=== PATIENT | female | born 1995 | race Caucasian/White ===

== ENCOUNTER → 2017-01-15 | Outpatient (CLI) | payer BC, SELFPAY ==
--- NOTE | 2017-01-15 21:59 | REP ---
Clinical: Dating and viability . Comparison: None . Findings: Examination demonstrates a single live intrauterine in cephalic presentation. motion is identified by technologist. Placenta is noted anteriorly and grade zero without evidence for placenta previa or abruption. Amniotic fluid volume is normal. Cervix measures 3.7 cm in length and appears closed. No evidence for nuchal cord. Gestational age by current measurements 17 weeks 5 days with JACOBO 06/20/2017 . FHR equals 135 beats per minute. Estimated weight 210 grams ( 52nd percentile). Anatomical assessment demonstrates normal structures including cranium, choroid plexus, cavum, cerebellum/posterior fossa, lungs, four-chamber heart, diaphragm, stomach, cord insertion/three-vessel cord, kidneys/bladder, and extremities. Impression: Single live intrauterine measuring at 17 weeks 5 days gestational age. Limited anatomical assessment as described above warrant reevaluation at approximately 21 weeks. Signed by Geovany Fisher MD 01/15/2017 09:51 P
== END ==
LOC: M RAD 12:03
PROVIDERS: ATTEND Physician Assistant
DX: Z32.01 Encounter for pregnancy test, result positive (principal); Z36 Encounter for antenatal screening of mother; Z3A.17 17 weeks gestation of pregnancy